=== PATIENT | female | born 1955 | race Caucasian/White ===

== ENCOUNTER 2018-09-28 19:47 | Inpatient (IN) | payer OTHER ==
[2018-09-28] MEDS ORDERED: SODIUM CHLORIDE 1,000 ML IV STA (19:57)
[2018-09-28] MEDS ORDERED: ONDANSETRON 4 MG/2 ML VIAL IVPB ONE (20:00)
--- NOTE | 2018-09-28 20:01 | PDOC ---
Rapid Medical Evaluation Chief Complaint: Pain Time Seen by Provider: 09/28/18 19:56 Medical Evaluation: 09/28/18 19:56 63 year old female diagnosed with diverticulitis currently on cipro and flagyl with worsening abdominal pain NVD. Pe: patient + lower abdominal tenderness A: abdominal pain P labs CTAp blood culture patient to ER for further management of care. 09/28/18 20:03 09/28/18 20:04 Discharge Disposition - Diagnosis Abdominal pain Qualifiers: Abdominal location: lower abdomen, unspecified Qualified Code(s): R10.30 - Lower abdominal pain, unspecified - Referrals - Patient Instructions - Post Discharge Activity
[2018-09-28] MEDS ORDERED: ONDANSETRON 4 MG/2 ML VIAL ONE (20:20)
[2018-09-28 20:31] LABS: BASO % 0.9 % (0-2.0); EOS % 1.2 % (0-4.5); HEMATOCRIT 42.4 % (32.4-45.2); HEMOGLOBIN 14.3 GM/dL (10.7-15.3); LYMPH % 21.7 % (8-40); MCHC 33.8 g/dl (32.0-36.0); MEAN PLT VOLUME 10.3 fl (7.5-11.1); NEUT % 65.2 % (42.8-82.8); PLATELET COUNT 299 K/MM3 (134-434); WHITE BLOOD COUNT 8.5 K/mm3 (4.0-10.0)
[2018-09-28 20:33] LABS: URINE APPEARANCE CLEAR; URINE BILIRUBIN NEGATIVE (<2.0 mg/dL); URINE COLOR DKYELLOW; URINE GLUCOSE (UA) NEGATIVE (NEGATIVE); URINE KETONE 2+ (NEGATIVE); URINE LEUK ESTERASE 1+ (NEGATIVE); URINE NITRITE NEGATIVE (NEGATIVE); URINE PROTEIN 1+ (NEGATIVE)
[2018-09-28 20:44] LABS: EPI CELLS RARE /HPF (FEW); URINE MUCUS FEW
[2018-09-28 21:32] LABS: ALBUMIN 3.8 g/dl (3.4-5.0); ALK PHOS 121 U/L (45-117); ANION GAP 10 MMOL/L (8-16); BILIRUBIN,TOTAL 0.5 mg/dL (0.2-1); BLOOD UREA NITROGEN 9 mg/dL (7-18); CHLORIDE 105 mmol/L (98-107); CO2 25 mmol/L (21-32); CREATININE 0.6 mg/dL (0.55-1.3); GLUCOSE,RANDOM 88 mg/dL (74-106); LIPASE 232 U/L (73-393); POTASSIUM 3.7 mmol/L (3.5-5.1); SGOT/AST 26 U/L (15-37); SGPT/ALT 46 U/L (13-61); SODIUM 140 mmol/L (136-145); TOT PROT 7.4 g/dl (6.4-8.2)
--- NOTE | 2018-09-28 22:41 | PDOC ---
History of Present Illness - General Chief Complaint: Pain Stated Complaint: ABD PAIN, WEAKNESS Time Seen by Provider: 09/28/18 19:56 History Source: Patient Exam Limitations: No Limitations - History of Present Illness Travel History: No Initial Comments: 09/28/18 22:42 Best Contact: PCP: Dr. Morse Pmhx: Arthritis Pshx: TVH Allergies:NKDA FH:0 Social Hx: Cigarettes/ 0 Alcohol/ 0 Drugs/0 LMP:N/A 63-year-old female presents to the ER complaining of 6/10 left lower quadrant abdominal discomfort 15 days with nausea/vomiting/diarrhea (NBNB). Pain is exacerbated on touch and no alleviating factors. Patient endorses fever/Tmax 101.2 off-and-on for approximately 5 days. Patient has been afebrile for the past 4 days. Patient saw her PMD on 2017 and was clinically diagnosed with diverticulitis. Patient was sent home with Cipro floxacillin 500 mg 1 tab by mouth twice a day and Flagyl 500 mg 1 tab by mouth every 8 hours. Patient has been on antibiotics for the past 8 days with minimal relief. Patient states her last bout of diarrhea was 4 days ago. No history of similar symptoms. Past History - Past Medical History Allergies/Adverse Reactions: Allergies Allergy/AdvReac Type Severity Reaction Status Date / Time No Known Allergies Allergy Verified 09/28/18 19:57 COPD: No - Suicide/Smoking/Psychosocial Hx Smoking History: Never smoked Review of Systems - Review of Systems Able to Perform ROS?: Yes Comments:: 09/28/18 22:41 CONSTITUTIONAL: Absent: fever, chills, diaphoresis, generalized weakness, malaise, loss of appetite HEENT: Absent: rhinorrhea, nasal congestion, throat pain, throat swelling, difficulty swallowing, mouth swelling, ear pain, eye pain, visual Changes CARDIOVASCULAR: Absent: chest pain, loss of consciousness, palpitations, irregular heart rate, peripheral edema RESPIRATORY: Absent: cough, shortness of breath, dyspnea with exertion, orthopnea, wheezing, stridor, hemoptysis GASTROINTESTINAL: +LLQ pain x 15d Absent: abdominal distension, nausea, vomiting, diarrhea, constipation, melena, hematochezia GENITOURINARY: Absent: dysuria, frequency, urgency, hesitancy, hematuria, flank pain, genital pain MUSCULOSKELETAL: Absent: myalgia, arthralgia, joint swelling SKIN: Absent: rash, itching, pallor Is the patient limited Citizen Of [place] proficient: No *Physical Exam - Vital Signs Last Vital Signs Temp Pulse Resp BP Pulse Ox 99.4 F 118 H 18 137/71 98 09/28/18 19:54 09/28/18 19:54 09/28/18 19:54 09/28/18 19:54 09/28/18 19:54 - Physical Exam Comments: 09/28/18 22:41 GENERAL: Well developed, well nourished. Awake and alert. No acute distress. HEENT: Normocephalic, atraumatic. PERRLA, EOMI. No conjunctival pallor. Sclera are non- icteric. Moist mucous membranes. Oropharynx is clear. NECK: Supple. Full ROM. No JVD. Carotid pulses 2+ and symmetric, without bruits. No thyromegaly. No lymphadenopathy. CARDIOVASCULAR: Regular rate and rhythm. No murmurs, rubs, or gallops. Distal pulses are 2+ and symmetric. PULMONARY: No evidence of respiratory distress. Lungs clear to auscultation bilaterally. No wheezing, rales or rhonchi. ABDOMINAL: +LLQ pain Soft. Non-distended. No rebound or guarding. No organomegaly. Normoactive bowel sounds. MUSCULOSKELETAL Normal range of motion at all joints. No bony deformities or tenderness. No CVA tenderness. EXTREMITIES: No cyanosis. No clubbing. No edema. No calf tenderness. SKIN: Warm and dry. Normal capillary refill. No rashes. No jaundice. NEUROLOGICAL: Alert, awake, appropriate. Cranial nerves 2-12 intact. No deficits to light touch and temperature in face, upper extremities and lower extremities. No motor deficits in the in face, upper extremities and lower extremities. Normoreflexic in the upper and lower extremities. Normal speech. Toes are down- going bilaterally. Gait is normal without ataxia. PSYCHIATRIC: Cooperative. Good eye contact. Appropriate mood and affect. ED Treatment Course - LABORATORY CBC & Chemistry Diagram: 09/28/18 20:12 09/28/18 20:12 - ADDITIONAL ORDERS Additional order review: Laboratory Results 09/28/18 09/28/18 09/28/18 20:54 20:14 20:12 Sodium 140 Potassium 3.7 Chloride 105 Carbon Dioxide 25 Anion Gap 10 BUN 9 Creatinine 0.6 Creat Clearance w eGFR > 60 Random Glucose 88 Lactic Acid 2.2 H* Calcium 9.0 Total Bilirubin 0.5 AST 26 ALT 46 Alkaline Phosphatase 121 H Total Protein 7.4 Albumin 3.8 Lipase 232 Urine Color Dkyellow Urine Appearance Clear Urine pH 6.0 Ur Specific [place] 1.020 Urine Protein 1+ H Urine Glucose (UA) Negative Urine Ketones 2+ H Urine Blood Negative Urine Nitrite Negative Urine Bilirubin Negative Urine Urobilinogen 2.0 H Ur Leukocyte Esterase 1+ H Urine WBC (Auto) 6 Urine RBC (Auto) 4 Ur Epithelial Cells Rare Urine Mucus Few 09/28/18 20:12 RBC 5.10 MCV 83.0 MCHC 33.8 RDW 13.0 MPV 10.3 Neutrophils % 65.2 Lymphocytes % 21.7 Monocytes % 11.0 H Eosinophils % 1.2 Basophils % 0.9 - RADIOLOGY Radiograph Interpretation: 09/28/18 22:42 CT abd/pelvis with po/iv contrast: - Medications Given in the ED: ED Medications Discontinued Medications Generic Name Dose Route Start Last Admin Trade Name Andreia PRN Reason Stop Dose Admin Sodium Chloride 1,000 mls @ 1,000 mls/hr 09/28/18 19:57 09/28/18 20:29 Normal Saline - IV 09/28/18 20:56 1,000 mls/hr ASDIR STA Administration Ondansetron HCl 4 mg 09/28/18 20:00 09/28/18 20:29 Zofran Injection IVPB 09/28/18 20:01 4 mg ONCE ONE Administration Progress Note - Progress Note Progress Note: 2321hrs: Spoke to Dr. Newman/surgery options advisor, req IR consult order, admit to hospitalist Bradley/siobhan Will see in the Am 2337hr: Microblogged hospitalist for admission *DC/Admit/Observation/Transfer Diagnosis at time of Disposition: Abdominal pain Qualifiers: Abdominal location: lower abdomen, unspecified Qualified Code(s): R10.30 - Lower abdominal pain, unspecified - Discharge Dispostion Condition at time of disposition: Guarded Decision to Admit order: Yes - Referrals - Patient Instructions - Post Discharge Activity
--- NOTE | 2018-09-29 00:29 | PN ---
<Riccardo Degroot - Last Filed: 09/29/18 01:19> Teaching Attending Note ATTENDING PHYSICIAN STATEMENT I saw and evaluated the patient. I reviewed the resident's note and discussed the case with the resident. I agree with the resident's findings and plan as documented. SUBJECTIVE: OBJECTIVE: ASSESSMENT AND PLAN: <Jared Rothman - Last Filed: 09/29/18 02:38> Teaching Attending Note Name of Resident: Andrade Coello ATTENDING PHYSICIAN STATEMENT I saw and evaluated the patient. I reviewed the resident's note and discussed the case with the resident. I agree with the resident's findings and plan as documented. SUBJECTIVE: Patient is a 63 year old woman who presents to the ER complaining of 6/10 left lower quadrant abdominal discomfort for 15 days with nausea/vomiting/diarrhea. Pain is exacerbated on touch and no alleviating factors. Patient has fever ( Tmax 101.2) off-and-on for approximately 5 days. Patient has been afebrile for the past 4 days. Patient saw her PMD on 09/22/2018 and was clinically diagnosed with diverticulitis. Patient was sent home with Cipro 500 mg bid and Flagyl 500 mg PO q 8hrs. Patient has been on antibiotics for the past 8 days with minimal relief. Patient states her last bout of diarrhea was 4 days ago. OBJECTIVE: Alert Vital Signs Period Temp Pulse Resp BP Sys/[place] Pulse Ox Last 24 Hr 99.4 F 118 18 137/71 98 HEENT: No Jaundice, eye redness or discharge, PERRLA, EOMI. Normocephalic, atraumatic. External ears are normal and hearing is grossly intact. No nasal discharge. Neck: Supple, nontender. No palpable adenopathy or thyromegaly. No JVD Chest: Good effort. Clear to auscultation and percussion. Heart: Regular. No S3, rub or murmur Abdomen: Not distended, soft, LLQ tenderness and no HSM. No rebound or guarding. Normoactive bowel sounds. Ext: Peripheral pulses intact. No leg edema. Skin: Warm and dry. No petechiae, rash or ecchymosis. Neuro: Alert. Oriented x3. CN 2-12 grossly intact. Sensation grossly intact in all four extremities and DTR are symmetric. Current Medications Generic Name Dose Route Start Last Admin Trade Name Freq PRN Reason Stop Dose Admin Metronidazole 500 mg in 100 mls @ 100 mls/hr 09/28/18 23:33 Flagyl 500mg Premixed Ivpb - IVPB 09/29/18 00:32 ONCE ONE Levofloxacin 500 mg in 100 mls @ 100 mls/hr 09/28/18 23:33 Levaquin 500 Mg Premixed Ivpb - IVPB 09/29/18 00:32 ONCE ONE Protocol Abnormal Lab Results 09/28/18 09/28/18 09/28/18 20:12 20:12 20:14 Monocytes % 11.0 H Lactic Acid Alkaline Phosphatase 121 H Urine Protein 1+ H Urine Ketones 2+ H Urine Urobilinogen 2.0 H Ur Leukocyte Esterase 1+ H 09/28/18 20:54 Monocytes % Lactic Acid 2.2 H* Alkaline Phosphatase Urine Protein Urine Ketones Urine Urobilinogen Ur Leukocyte Esterase ASSESSMENT AND PLAN: 1. Sigmoid Diverticulitis with intramural abscess - Will treat with IV Zosyn, continue IV NS, trend lactic acid, keep her NPO and consult Surgery, IR and ID. 2. DVT prophylaxis - Lovenox 40 mg SQ q 24 hours. 3. Advance directives - Full code
[2018-09-29] MEDS ORDERED: ONDANSETRON 4 MG/2 ML VIAL IVPUSH PRN (02:10)
[2018-09-29] MEDS ORDERED: DEXTROSE 5%-0.45% SALINE 1,000 ML IV SCH (02:15)
--- NOTE | 2018-09-29 02:21 | HP ---
CHIEF COMPLAINT: Nausea, diarrhea, LLQ pain PCP: Dr. Morse HISTORY OF PRESENT ILLNESS: 63 yo female with no significant PMH admitted following 2 weeks of LLQ abdominal pain, fevers (Tmax 102 at home, now resolved), nausea, vomiting, diarrhea. She states that last saturday 09/22 she saw her PCP who diagnosed her with Diverticulitis and started her on PO Cipro/Flagyl. She states that her fever resolved about 3 days ago and that she is no longer vomiting, however her nausea, pain, and diarrhea persist. She called her PCP for another appointment and could not get in today so her daughter brought her to the ED. She currently endorses chills, LLQ pain, and nausea. She denies any headache, dizziness, chest pain, SOB, hematochezia or hematemesis. ER course was notable for: (1) CT Abd/Pelvis with diverticulitis and colonic wall abscess (2) Surgery consulted (3) Flagyl/Levaquin Recent Travel: none PAST MEDICAL HISTORY: Arthritis PAST SURGICAL HISTORY: Vaginal Hysterectomy Social History: Smoking: denies Alcohol: denies Drugs: denies Family History: Allergies No Known Allergies Allergy (Verified 09/29/18 01:53) HOME MEDICATIONS: REVIEW OF SYSTEMS CONSTITUTIONAL: fever, chills Absent: , diaphoresis, generalized weakness, malaise, loss of appetite, weight change HEENT: Absent: rhinorrhea, nasal congestion, throat pain, throat swelling, difficulty swallowing, mouth swelling, ear pain, eye pain, visual changes CARDIOVASCULAR: Absent: chest pain, syncope, palpitations, irregular heart rate, lightheadedness , peripheral edema RESPIRATORY: Absent: cough, shortness of breath, dyspnea with exertion, orthopnea, wheezing, stridor, hemoptysis GASTROINTESTINAL:abdominal pain, nausea, vomiting, diarrhea, Absent: , abdominal distension, constipation, melena, hematochezia GENITOURINARY: Absent: dysuria, frequency, urgency, hesitancy, hematuria, flank pain, genital pain MUSCULOSKELETAL: Absent: myalgia, arthralgia, joint swelling, back pain, neck pain SKIN: Absent: rash, itching, pallor HEMATOLOGIC/IMMUNOLOGIC: Absent: easy bleeding, easy bruising, lymphadenopathy, frequent infections ENDOCRINE: Absent: unexplained weight gain, unexplained weight loss, heat intolerance, cold intolerance NEUROLOGIC: Absent: headache, focal weakness or paresthesias, dizziness, unsteady gait, seizure, mental status changes, bladder or bowel incontinence PSYCHIATRIC: Absent: anxiety, depression, suicidal or homicidal ideation, hallucinations. PHYSICAL EXAMINATION Vital Signs - 24 hr 09/28/18 09/29/18 19:54 01:25 Temperature 99.4 F 99.7 F H Pulse Rate 118 H Pulse Rate [ 85 Right Radial] Respiratory 18 16 Rate Blood Pressure 137/71 Blood Pressure 131/81 [Right Arm] O2 Sat by Pulse 98 95 Oximetry (%) GENERAL: A&O, no acute distress HEAD: Normocephalic, atraumatic. EYES: PERRL, no scleral icterus EARS, NOSE, THROAT: oropharynx clear without exudates. Moist mucous membranes. NECK: supple without lymphadenopathy LUNGS: CTA b/l, no crackles or wheezes HEART: Regular rate and rhythm, normal S1 and S2 without murmur ABDOMEN: Soft, tender to palpation in LLQ, normoactive to hyperactive bowel sounds EXTREMITIES: 2+ pulses, warm, well-perfused. No peripheral edema. NEUROLOGICAL: Cranial nerves II-XII grossly intact. Normal speech. Laboratory Results - last 24 hr 09/28/18 09/28/18 09/28/18 20:12 20:12 20:14 WBC 8.5 RBC 5.10 Hgb 14.3 Hct 42.4 MCV 83.0 MCH 28.0 MCHC 33.8 RDW 13.0 Plt Count 299 MPV 10.3 Absolute Neuts (auto) 5.6 Neutrophils % 65.2 Lymphocytes % 21.7 Monocytes % 11.0 H Eosinophils % 1.2 Basophils % 0.9 Nucleated RBC % 0 Sodium 140 Potassium 3.7 Chloride 105 Carbon Dioxide 25 Anion Gap 10 BUN 9 Creatinine 0.6 Creat Clearance w eGFR > 60 Random Glucose 88 Lactic Acid Calcium 9.0 Total Bilirubin 0.5 AST 26 ALT 46 Alkaline Phosphatase 121 H Total Protein 7.4 Albumin 3.8 Lipase 232 Urine Color Dkyellow Urine Appearance Clear Urine pH 6.0 Ur Specific [place] 1.020 Urine Protein 1+ H Urine Glucose (UA) Negative Urine Ketones 2+ H Urine Blood Negative Urine Nitrite Negative Urine Bilirubin Negative Urine Urobilinogen 2.0 H Ur Leukocyte Esterase 1+ H Urine WBC (Auto) 6 Urine RBC (Auto) 4 Ur Epithelial Cells Rare Urine Mucus Few 09/28/18 20:54 WBC RBC Hgb Hct MCV MCH MCHC RDW Plt Count MPV Absolute Neuts (auto) Neutrophils % Lymphocytes % Monocytes % Eosinophils % Basophils % Nucleated RBC % Sodium Potassium Chloride Carbon Dioxide Anion Gap BUN Creatinine Creat Clearance w eGFR Random Glucose Lactic Acid 2.2 H* Calcium Total Bilirubin AST ALT Alkaline Phosphatase Total Protein Albumin Lipase Urine Color Urine Appearance Urine pH Ur Specific [place] Urine Protein Urine Glucose (UA) Urine Ketones Urine Blood Urine Nitrite Urine Bilirubin Urine Urobilinogen Ur Leukocyte Esterase Urine WBC (Auto) Urine RBC (Auto) Ur Epithelial Cells Urine Mucus ASSESSMENT/PLAN: 63 yo female with no significant PMH admitted following 2 weeks of LLQ abdominal pain, fevers (Tmax 102 at home, now resolved), nausea, vomiting, diarrhea. Diverticulitis with colonic wall abscess -CT Abd/Pelvis noted: Acute sigmoid diverticulitis with intramural abscess in colonic wall -Surgery consulted, case discussed with ED provider -Levaquin Flagyl in ED -Zofran 4 mg IV Q6 PRN -Zosyn 3.375 gm IV Q8 -ID Consulted for further abx recommendations -Currently Afebrile, WBC 8.5, 11 monocytes -Consider IR guided drainage -Lactic acid 2.2, fluids and trend -Blood c/s pending -NPO -Incentive spirometry DVT Prophylaxis -Lovenox 40 mg SQ Daily FEN -Fluids: D5 1/2 NS @ 25 cc/hr -Electrolytes: No electrolyte abnormalities, BMP in AM -Nutrition: NPO Disposition Med/Surg Visit type - Emergency Visit Emergency Visit: Yes ED Registration Date: 09/28/18 Care time: The patient presented to the Emergency Department on the above date and was hospitalized for further evaluation of their emergent condition. - New Patient This patient is new to me today: Yes Date on this admission: 09/29/18 - Critical Care Critical Care patient: No
[2018-09-29] MEDS ORDERED: PIPERACILLIN/TAZOB 3.375 GM 3.375 GM/50 ML BAG IVPB ONE (02:41)
[2018-09-29] MEDS: PIPERACILLIN/TAZOB 3.375 GM 3.375 GM in DEXTROSE 5%-WATER - 50 ML IVPB SCH ×4 (02:50→17:27)
--- NOTE | 2018-09-29 03:40 | CONSULT ---
Consult Consult Specialty:: General Surgery Reason for Consultation:: betina 1 diverticulitis - History of Present Illness Chief Complaint: abdominal pain History of Present Illness: 63yo female with PMH constipation, diverticulitis admitted following 2 weeks of LLQ abdominal pain, fevers (Tmax 102 at home, now resolved), nausea, vomiting, diarrhea. She states that last saturday 09/22 she saw her PCP who diagnosed her with Diverticulitis and started her on PO Cipro/Flagyl. She states that her fever resolved about 3 days ago and that she is no longer vomiting, however her nausea, pain, and diarrhea persist. She called her PCP for another appointment and could not get in today so her daughter brought her to the ED. She currently endorses chills, LLQ pain, and nausea. She denies any headache, dizziness, chest pain, SOB, hematochezia or hematemesis. on exam she reported that her abdominal pain was resolved now. we were asked to assess. - History Source History Provided By: Patient, Medical Record Limitations to Obtaining History: No Limitations - Past Medical History Gastrointestinal: Yes: Constipation, Diverticulitis - Smoking History Smoking history: Never smoked Home Medications - Allergies Allergies/Adverse Reactions: Allergies Allergy/AdvReac Type Severity Reaction Status Date / Time No Known Allergies Allergy Verified 09/29/18 01:53 Review of Systems - Review of Systems Constitutional: reports: Fever. denies: Chills Eyes: denies: Blind Spots, Recent Change in Vision HENT: denies: Difficult Swallowing, Throat Pain Neck: denies: Lumps, Tenderness Cardiovascular: denies: Chest Pain, Palpitations Respiratory: denies: Cough, SOB Gastrointestinal: reports: Abdominal Pain, Constipation. denies: Diarrhea, Vomiting Genitourinary: denies: Discharge, Dysuria Breasts: reports: No Symptoms Reported. denies: Pain Musculoskeletal: denies: Muscle Cramps, Muscle Weakness Integumentary: denies: Bruising, Erythema, Rash Neurological: denies: Seizure, Syncope Endocrine: denies: Unexplained Weight Gain, Unexplained Weight Loss Hematology/Lymphatic: denies: Easily Bruised, Excessive Bleeding Psychiatric: denies: Anxiety, Depression Physical Exam Vital Signs: Vital Signs Temperature 99.7 F H 09/29/18 01:25 Pulse Rate 85 09/29/18 01:25 Respiratory Rate 16 11/20/18 01:25 Blood Pressure 131/81 11/20/18 01:25 O2 Sat by Pulse Oximetry (%) 95 09/29/18 01:25 Constitutional: Yes: Well Nourished, No Distress, Calm Eyes: Yes: Conjunctiva Clear, EOM Intact HENT: Yes: Atraumatic, Normocephalic Neck: Yes: Supple, Trachea Midline Cardiovascular: Yes: Regular Rate and Rhythm, S1, S2 Respiratory: Yes: Regular, CTA Bilaterally Gastrointestinal: Yes: Normal Bowel Sounds, Soft, Tenderness (LLQ), Tenderness, Rebound. No: Rectal Bleeding, Tenderness, Epigastrium ...Rectal Exam: Yes: Sphincter Tone Normal, Other (uncomfitable). No: Mass Renal/: No: CVA Tenderness - Left, CVA Tenderness - Right Extremities: No: Cold, Cool Edema: No Peripheral Pulses WNL: Yes Integumentary: No: Erythema, Jaundice, Rash Neurological: Yes: Alert, Oriented Psychiatric: Yes: Alert, Oriented Labs: CBC, BMP 09/28/18 20:12 09/28/18 20:12 Imaging - Results Cat Scan: Report Reviewed, Image Reviewed (pericolinic abscess thicen rectosigmoid) Problem List - Problems (1) Diverticulitis of large intestine with abscess Assessment/Plan: 63yo female with constipation and an acute diverticulitis (hinchey class 1), associated high fevers NPO and IVF hydration until pain free - patient had a tray of clears already IV antibiotics (levaquin flagyl, possible zosyn?) Assessment by IR for drainage of abscess will need PO antibiotic regimen GI for f/u colonioscopy in 6-8weeks f/u in surgery clinic in 3 months for elective sigmoid colectoy if desired. will follow periperally for serial exams Thank you for the opportunity to participate in the care of this patient. Code(s): K57.20 - DVTRCLI OF LG INT W PERFORATION AND ABSCESS W/O BLEEDING Qualifiers: Diverticulitis bleeding: without bleeding Qualified Code(s): K57.20 - Diverticulitis of large intestine with perforation and abscess without bleeding (2) Diverticulitis large intestine Code(s): K57.32 - DVTRCLI OF LG INT W/O PERFORATION OR ABSCESS W/O BLEEDING Qualifiers: Diverticulitis bleeding: without bleeding Diverticulitis complication: with abscess Qualified Code(s): K57.20 - Diverticulitis of large intestine with perforation and abscess without bleeding (3) Diverticulitis of rectosigmoid Code(s): K57.32 - DVTRCLI OF LG INT W/O PERFORATION OR ABSCESS W/O BLEEDING (4) Abdominal pain Code(s): R10.9 - UNSPECIFIED ABDOMINAL PAIN Qualifiers: Abdominal location: lower abdomen, unspecified Qualified Code(s): R10.30 - Lower abdominal pain, unspecified
[2018-09-29 04:44] VITALS: BMI 28.7
[2018-09-29 07:02] LABS: BASO % 0.6 % (0-2.0); EOS % 1.9 % (0-4.5); HEMATOCRIT 37.6 % (32.4-45.2); HEMOGLOBIN 11.8 GM/dL (10.7-15.3); MCH 26.5 pg (25.7-33.7); MCHC 31.4 g/dl (32.0-36.0); MEAN CELL VOLUME 84.4 fl (80-96); MEAN PLT VOLUME 10.1 fl (7.5-11.1); MONO % 16.7 % (3.8-10.2); NEUT % 53.8 % (42.8-82.8); PLATELET COUNT 226 K/MM3 (134-434); RBC 4.46 M/mm3 (3.60-5.2); RDW 13.4 % (11.6-15.6); WHITE BLOOD COUNT 5.6 K/mm3 (4.0-10.0)
[2018-09-29 07:25] LABS: ALBUMIN 2.8 g/dl (3.4-5.0); ALK PHOS 94 U/L (45-117); ANION GAP 11 MMOL/L (8-16); BILIRUBIN,TOTAL 0.5 mg/dL (0.2-1); BLOOD UREA NITROGEN 5 mg/dL (7-18); CALCIUM 7.7 mg/dL (8.5-10.1); CHLORIDE 106 mmol/L (98-107); CO2 24 mmol/L (21-32); CREATININE 0.5 mg/dL (0.55-1.3); GLUCOSE,RANDOM 107 mg/dL (74-106); MAGNESIUM 2.1 mg/dL (1.8-2.4); PHOSPHOROUS 2.6 mg/dL (2.5-4.9); POTASSIUM 3.4 mmol/L (3.5-5.1); SGOT/AST 22 U/L (15-37); SGPT/ALT 36 U/L (13-61); SODIUM 141 mmol/L (136-145); TOT PROT 5.7 g/dl (6.4-8.2)
[2018-09-29 07:33] LABS: INR 1.34 (0.83-1.09); PROTHROMBIN TIME (PATIENT) 15.9 SEC (9.7-13.0)
[2018-09-29] MEDS ORDERED: POTASSIUM CHLORIDE TABS 20 MEQ TABLET.ER (FP) PO ONE (07:40)
[2018-09-29] MEDS ORDERED: PIPERACILLIN/TAZOBACTAM 3.375 GM VIAL IVPB ONE ×3 (09:13→17:17)
[2018-09-29] MEDS ORDERED: DEXTROSE 5%-WATER - 50 ML IVPB ONE ×3 (09:14→17:17)
[2018-09-29] MEDS ORDERED: PT OWN MED DRAWER 7, Y5N ONE ×2 (09:17→12:29)
[2018-09-29] MEDS ORDERED: ENOXAPARIN NA (PORCINE) 40 MG/0.4 ML DISP.SYRIN SQ SCH (10:00)
--- NOTE | 2018-09-29 10:43 | EKG ---
Test Reason : Blood Pressure : / mmHG Vent. Rate : 092 BPM Atrial Rate : 092 BPM P-R Int : 134 ms QRS Dur : 080 ms QT Int : 344 ms P-R-T Axes : 050 042 001 degrees QTc Int : 425 ms NORMAL SINUS RHYTHM ABNORMAL ECG NO PREVIOUS ECGS AVAILABLE Confirmed by Duane Arzola MD ([id number]) on 09/29/2018 10:43:43 AM Referred By: Confirmed By:Duane Arzola MD
[2018-09-29] MEDS ORDERED: PANTOPRAZOLE SODIUM 40 MG VIAL IVPUSH ONE (10:59)
--- NOTE | 2018-09-29 11:40 | PN ---
Progress Note (short form) - Note Progress Note: ID Consult dictated Acute complicated sigmoid diverticulitis Diverticular abscess Await c/s Surgical evaluation Empiric zosyn
--- NOTE | 2018-09-29 12:03 | CONS ---
DATE OF CONSULTATION: DATE OF DICTATION: 09/29/2018 The patient is a 63-year-old healthy female who is evaluated for acute complicated diverticulitis. The patient was admitted to the hospital on September 28, 2018, with complaints of left lower abdominal pain. According to the notes, she had developed pain approximately 2 weeks prior to admission. It was located to the left lower quadrant. It was associated with nausea, vomiting and diarrhea. She had subjective fever. She presented to the primary care physician and was prescribed an oral quinolone and Flagyl. Despite taking antibiotics for a week, she had progressively worsening left lower quadrant pain to the point where her daughter took her to the emergency room. In emergency room, a CAT scan was performed and showed evidence of sigmoid diverticulitis with an intramural abscess. Cultures were obtained. She was empirically treated with Zosyn. At the present time, she complains of left lower quadrant abdominal pain. She has had nausea, vomiting. She has had loose bowel movement. She denies any rectal bleeding. She has had low-grade fever since admission but a normal white blood cell count. She denies prior history of GI problems. She is otherwise healthy. PAST MEDICAL HISTORY: Negative. No known allergies. Medications include Zofran, Zosyn. SOCIAL HISTORY: She lives at home in the community. She is a nonsmoker, nondrinker. SYSTEMS REVIEW: Neurologic: No loss of consciousness, seizure activity, focal weakness. Cardiac: Negative chest pain or palpitations. Respiratory: Negative cough or sputum production. Gastrointestinal: As per HPI. Genitourinary: Negative for urinary tract infection. LABORATORY DATA: White count 5.6, hematocrit 37.6, platelet count 226, BUN 5, creatinine 0.5, lactic acid 2.2. Urinalysis: 6 white cells. Blood cultures are pending. CAT scan shows thickened sigmoid colon with intramural abscess. There is also a 2 cm left ovarian cyst. PHYSICAL EXAMINATION: General: She is awake and alert, supine in bed. She is in no acute distress. Vital Signs: Temperature 98.8. T-max 99.7. Blood pressure 115/72. Pulse 82, regular. Respirations 20 per minute. Eyes: Sclerae anicteric. Heart Sounds: S1, S2. No murmur. Lungs: Clear. Abdomen: Soft. There is left lower quadrant tenderness to palpation. Extremities: Negative for edema. IMPRESSION: 1. Acute complicated sigmoid diverticulitis. 2. Intramural diverticular abscess. 3. Lactic acidosis. Await cultures. Surgical evaluation. IR evaluation for possible percutaneous drainage of diverticular abscess. Empiric antibiotic coverage for enteric pathogens with Zosyn 3.375 g IV piggyback every 8 hours, analgesics. Will follow. Thank you for the kind referral. JAZMÍN ALARCON M.D. [id number]
--- NOTE | 2018-09-29 12:57 | PN ---
Teaching Attending Note Name of Resident: Olga Pantoja ATTENDING PHYSICIAN STATEMENT I saw and evaluated the patient. I reviewed the resident's note and discussed the case with the resident. I agree with the resident's findings and plan as documented. SUBJECTIVE: No fever or chills . No abd pain. No N/V today . No diarrhea. OBJECTIVE: NAD , awake, alert, cooperative Cv; RRR Lungs: CTAB Abd: soft, TTP in LLQ and suprapubic area. nl BS, ND. Ext: no edema or erythema ASSESSMENT AND PLAN: 63 y/o previously healthy lady who presented with abd pain and N/V after being treated for acute diverticulitis x 8 days with cipro/flagyl 1- Acute sigmoid diverticulitis with abscess formation: N/V resolved. has no Abd pain or diarrhea - Zosyn per ID. already failed fluoroquinolones - cont IVF, switch to D51/2 NS with Kcl - NPO, clears tomorrow - case was d/w Dr. Loomis by resident. abscess is not in a location that could be reached. - will treat conservatively and repeat CT as out pt to assess resolution . - as out pt will need colo and surgical f/u DVT Px : add Lovenox
--- NOTE | 2018-09-29 14:10 | PN ---
Physical Exam: SUBJECTIVE: Patient is a 63 y/o female with no past medical history who is here for diverticulitis with colonic wall abscess. Patient reports the diarrhea has subsided and she no longer feels feverish. She has no acute complaints and no events overnight. OBJECTIVE: Vital Signs Temperature 98.8 F 09/29/18 08:00 Pulse Rate 82 09/29/18 08:00 Respiratory Rate 20 09/29/18 09:00 Blood Pressure 115/72 09/29/18 08:00 O2 Sat by Pulse Oximetry (%) 98 09/29/18 09:00 GENERAL: The patient is awake, alert, and fully oriented, in no acute distress. HEAD: Normal with no signs of trauma. EYES: PERRL, extraocular movements intact, ENT: moist mucous membranes. LUNGS: Breath sounds equal, clear to auscultation bilaterally, no wheezes, no crackles HEART: Regular rate and rhythm, S1, S2 without murmur, rub or gallop. ABDOMEN: Soft, nontender, nondistended, normoactive bowel sounds, no guarding, no rebound EXTREMITIES: 2+ pulses, warm, well-perfused, no edema. PSYCH: Normal mood, normal affect. SKIN: Warm, dry, normal turgor, no rashes or lesions noted CBC, BMP 09/29/18 06:30 09/29/18 06:30 Active Medications Enoxaparin Sodium (Lovenox -) 40 mg SQ DAILY IDA Potassium Chloride/Dextrose/Sod Cl (D5-1/2ns+10 Meq Kcl -) 10 meq in 1,000 mls @ 100 mls/hr IV ASDIR IDA Piperacillin Sod/Tazobactam (Sod 3.375 gm/ Dextrose) 50 mls @ 100 mls/hr IVPB Q8H-IV IDA; Protocol Last Admin: 09/29/18 12:13 Dose: 100 mls/hr Ondansetron HCl (Zofran Injection) 4 mg IVPUSH Q6H PRN PRN Reason: NAUSEA ASSESSMENT/PLAN: Patient is a 63 y/o female with no past medical history who is here for diverticulitis with colonic wall abscess. #diverticulitis with colonic wall abscess - CT abd pelvis: acute sigmoid diverticulitis with intramural abscess in colonic wall - continue patient on Zosyn 3.3.75 gm IV q8h, day 2 - continue IV abx per Bharath, monitor clinically to determine when change to po abx - lactic acid 2.2> 2.0 - evaluated by Surgery and IR, abscess not drainable at this time - per surgery, Dr. Newman: continue NPO and IV fluids until clinically improved, D5 1/2 NS @ 100 - patient to follow up with colonoscopy in 3-6 weeks, can f/u with surgery clinic - CRP: pending - afebrile, tylenol 650 mg q6h prn pain or fever #hypokalemia - D5 1/2 NS with 10 ml K - 40 meq po Kdur #DVT ppx - Lovenox 40 mg Dispo: continue to monitor clinically Visit type - Emergency Visit Emergency Visit: No - New Patient This patient is new to me today: Yes Date on this admission: 09/29/18 - Critical Care Critical Care patient: No
[2018-09-29] MEDS ORDERED: ACETAMINOPHEN 325 MG TABLET (FP) PO PRN (14:34)
[2018-09-29] MEDS: D5-1/2NS+10 MEQ KCL - 10 MEQ/1,000 ML INFUS.BAG IV SCH (14:55)
[2018-09-29] MEDS ORDERED: PIPERACILLIN/TAZOB 3.375 GM 3.375 GM in DEXTROSE 5%-WATER - 50 ML IVPB SCH (18:00)
[2018-09-30] MEDS ORDERED: PIPERACILLIN/TAZOBACTAM 3.375 GM VIAL IVPB ONE ×3 (02:06→17:41)
[2018-09-30] MEDS ORDERED: DEXTROSE 5%-WATER - 50 ML IVPB ONE ×3 (02:06→17:41)
[2018-09-30] MEDS: D5-1/2NS+10 MEQ KCL - 10 MEQ/1,000 ML INFUS.BAG IV SCH (02:08)
[2018-09-30] MEDS: PIPERACILLIN/TAZOB 3.375 GM 3.375 GM in DEXTROSE 5%-WATER - 50 ML IVPB SCH ×3 (02:08→17:46)
[2018-09-30 06:57] LABS: HEMATOCRIT 41.3 % (32.4-45.2); HEMOGLOBIN 13.2 GM/dL (10.7-15.3); MCH 26.9 pg (25.7-33.7); MEAN CELL VOLUME 84.2 fl (80-96); PLATELET COUNT 274 K/MM3 (134-434); RBC 4.91 M/mm3 (3.60-5.2); RDW 13.6 % (11.6-15.6); WHITE BLOOD COUNT 5.6 K/mm3 (4.0-10.0)
[2018-09-30 08:07] LABS: ALBUMIN 3.4 g/dl (3.4-5.0); ALK PHOS 105 U/L (45-117); ANION GAP 10 MMOL/L (8-16); BILIRUBIN,TOTAL 0.6 mg/dL (0.2-1); BLOOD UREA NITROGEN 3 mg/dL (7-18); CALCIUM 8.6 mg/dL (8.5-10.1); CHLORIDE 106 mmol/L (98-107); CO2 26 mmol/L (21-32); CREATININE 0.7 mg/dL (0.55-1.3); GLUCOSE,RANDOM 110 mg/dL (74-106); POTASSIUM 4.2 mmol/L (3.5-5.1); SGOT/AST 28 U/L (15-37); SGPT/ALT 39 U/L (13-61); SODIUM 142 mmol/L (136-145); TOT PROT 6.9 g/dl (6.4-8.2)
--- NOTE | 2018-09-30 08:29 | PN ---
Teaching Attending Note Name of Resident: Olga Pantoja ATTENDING PHYSICIAN STATEMENT I saw and evaluated the patient. I reviewed the resident's note and discussed the case with the resident. I agree with the resident's findings and plan as documented. SUBJECTIVE: Patient is feeling better on full liquid diet now. OBJECTIVE: Vital Signs Temperature 99.2 F 09/30/18 06:00 Pulse Rate 78 09/30/18 06:00 Respiratory Rate 18 09/30/18 06:00 Blood Pressure 110/61 09/30/18 06:00 O2 Sat by Pulse Oximetry (%) 98 09/29/18 21:00 GENERAL: The patient is awake, alert, and fully oriented, in no acute distress. HEAD: Normal with no signs of trauma. EYES: PERRL, extraocular movements intact, ENT: moist mucous membranes. LUNGS: Breath sounds equal, clear to auscultation bilaterally, no wheezes, no crackles HEART: Regular rate and rhythm, S1, S2 without murmur, rub or gallop. ABDOMEN: Soft, NT,ND, normoactive bowel sounds, no guarding, no rebound EXTREMITIES: 2+ pulses, warm, well-perfused, no edema. PSYCH: Normal mood, normal affect. SKIN: Warm, dry, normal turgor, no rashes or lesions noted CBCD WBC 5.6 K/mm3 (4.0-10.0) 09/29/18 06:30 RBC 4.46 M/mm3 (3.60-5.2) 09/29/18 06:30 Hgb 11.8 GM/dL (10.7-15.3) 09/29/18 06:30 Hct 37.6 % (32.4-45.2) 09/29/18 06:30 MCV 84.4 fl (80-96) 09/29/18 06:30 MCHC 31.4 g/dl (32.0-36.0) L 09/29/18 06:30 RDW 13.4 % (11.6-15.6) 09/29/18 06:30 Plt Count 226 K/MM3 (134-434) D 09/29/18 06:30 MPV 10.1 fl (7.5-11.1) 09/29/18 06:30 CMP Sodium 142 mmol/L (136-145) 09/30/18 06:15 Potassium 4.2 mmol/L (3.5-5.1) 09/30/18 06:15 Chloride 106 mmol/L (98-107) 09/30/18 06:15 Carbon Dioxide 26 mmol/L (21-32) 09/30/18 06:15 Anion Gap 10 MMOL/L (8-16) 09/30/18 06:15 BUN 3 mg/dL (7-18) L 09/30/18 06:15 Creatinine 0.7 mg/dL (0.55-1.3) 09/30/18 06:15 Creat Clearance w eGFR > 60 (>60) 09/30/18 06:15 Random Glucose 110 mg/dL (74-106) H 09/30/18 06:15 Calcium 8.6 mg/dL (8.5-10.1) 09/30/18 06:15 Total Bilirubin 0.6 mg/dL (0.2-1) 09/30/18 06:15 AST 28 U/L (15-37) 09/30/18 06:15 ALT 39 U/L (13-61) 09/30/18 06:15 Alkaline Phosphatase 105 U/L (45-117) 09/30/18 06:15 Total Protein 6.9 g/dl (6.4-8.2) 09/30/18 06:15 Albumin 3.4 g/dl (3.4-5.0) 09/30/18 06:15 Current Medications Generic Name Dose Route Start Last Admin Trade Name Freq PRN Reason Stop Dose Admin Acetaminophen 650 mg 09/29/18 14:34 Tylenol - PO Q6H PRN PAIN OR FEVER Enoxaparin Sodium 40 mg 09/30/18 10:00 Lovenox - SQ DAILY IDA Potassium Chloride/Dextrose/Sod Cl 10 meq in 1,000 mls @ 100 mls/hr 09/29/18 11:00 09/30/18 02:08 D5-1/2ns+10 Meq Kcl - IV 100 mls/hr ASDIR IDA Administration Piperacillin Sod/Tazobactam 50 mls @ 100 mls/hr 09/29/18 11:30 09/30/18 02:08 Sod 3.375 gm/ Dextrose IVPB 100 mls/hr Q8H-IV IDA Administration Protocol Ondansetron HCl 4 mg 09/29/18 02:10 Zofran Injection IVPUSH Q6H PRN NAUSEA ASSESSMENT AND PLAN: Patient is a 63 y/o female presented with abdominal pain and N/V after being treated with acute diverticulitis x 8 days with cipro/flagyl # Acute sigmoid diverticulitis with abscess formation: on IV Zosyn per ID. since failed fluoroquinolones as an outpatient. on Clear liquid now, cont IVF, switch to D51/2 NS with Kcl , as per notes, patient is not a candidate for IR procedure an abscess drainage since is not in a location that could be reached. treatment conservatively and will repeat CT as out pt to assess resolution . - as out pt will need colonoscopy and surgical f/u once stable. DVT Px : add Lovenox
--- NOTE | 2018-09-30 08:47 | PN ---
Physical Exam: SUBJECTIVE: Patient is a 63 y/o female with no past medical history who is here for diverticulitis with colonic wall abscess. Patient reports the diarrhea has subsided and she no longer feels feverish. She has no acute complaints and no events overnight. Patient reports she has no pain today. OBJECTIVE: Vital Signs Temperature 99.2 F 09/30/18 06:00 Pulse Rate 78 09/30/18 06:00 Respiratory Rate 18 09/30/18 06:00 Blood Pressure 110/61 09/30/18 06:00 O2 Sat by Pulse Oximetry (%) 98 09/29/18 21:00 GENERAL: The patient is awake, alert, and fully oriented, in no acute distress. HEAD: Normal with no signs of trauma. EYES: PERRL, extraocular movements intact, ENT: moist mucous membranes. LUNGS: Breath sounds equal, clear to auscultation bilaterally, no wheezes, no crackles HEART: Regular rate and rhythm, S1, S2 without murmur, rub or gallop. ABDOMEN: Soft, nontender, nondistended, normoactive bowel sounds, no guarding, no rebound EXTREMITIES: 2+ pulses, warm, well-perfused, no edema. PSYCH: Normal mood, normal affect. SKIN: Warm, dry, normal turgor, no rashes or lesions noted CBC, BMP 09/30/18 06:15 09/30/18 06:15 Active Medications Acetaminophen (Tylenol -) 650 mg PO Q6H PRN PRN Reason: PAIN OR FEVER Enoxaparin Sodium (Lovenox -) 40 mg SQ DAILY IDA Potassium Chloride/Dextrose/Sod Cl (D5-1/2ns+10 Meq Kcl -) 10 meq in 1,000 mls @ 100 mls/hr IV ASDIR IDA Last Admin: 09/30/18 02:08 Dose: 100 mls/hr Piperacillin Sod/Tazobactam (Sod 3.375 gm/ Dextrose) 50 mls @ 100 mls/hr IVPB Q8H-IV IDA; Protocol Last Admin: 09/30/18 02:08 Dose: 100 mls/hr Ondansetron HCl (Zofran Injection) 4 mg IVPUSH Q6H PRN PRN Reason: NAUSEA ASSESSMENT/PLAN: Patient is a 63 y/o female with no past medical history who is here for diverticulitis with colonic wall abscess. #diverticulitis with colonic wall abscess - CT abd pelvis: acute sigmoid diverticulitis with intramural abscess in colonic wall - continue patient on Zosyn 3.3.75 gm IV q8h, day 3 - continue IV abx per Bharath, monitor clinically to determine when change to po abx - lactic acid 2.2> 2.0 - evaluated by Surgery and IR, abscess not drainable at this time - patient to follow up with colonoscopy in 3-6 weeks, can f/u with surgery clinic - CRP: 1.3 - afebrile, tylenol 650 mg q6h prn pain or fever - spoke with Dr. Newman, patient pain free and hungry; patient tolerated clear liquid, advance to full for dinner and advance as tolerated #hypokalemia - resolved #DVT ppx - Lovenox 40 mg Dispo: continue to monitor clinically Visit type - Emergency Visit Emergency Visit: No - New Patient This patient is new to me today: No - Critical Care Critical Care patient: No
[2018-09-30] MEDS: ENOXAPARIN NA (PORCINE) 40 MG/0.4 ML DISP.SYRIN SQ SCH (09:53)
--- NOTE | 2018-09-30 10:14 | PN ---
Progress Note, Physician History of Present Illness: 63yo female with PMH constipation, diverticulitis admitted following 2 weeks of LLQ abdominal pain, fevers (Tmax 102 at home, now resolved), nausea, vomiting, diarrhea. She states that last saturday 09/22 she saw her PCP who diagnosed her with Diverticulitis and started her on PO Cipro/Flagyl. complains of being hungry but abdominal pain persists. low grade temp - Current Medication List Current Medications: Active Medications Acetaminophen (Tylenol -) 650 mg PO Q6H PRN PRN Reason: PAIN OR FEVER Enoxaparin Sodium (Lovenox -) 40 mg SQ DAILY IDA Last Admin: 09/30/18 09:53 Dose: 40 mg Piperacillin Sod/Tazobactam (Sod 3.375 gm/ Dextrose) 50 mls @ 100 mls/hr IVPB Q8H-IV IDA; Protocol Last Admin: 09/30/18 09:53 Dose: 100 mls/hr Ondansetron HCl (Zofran Injection) 4 mg IVPUSH Q6H PRN PRN Reason: NAUSEA - Objective Vital Signs: Vital Signs Temperature 99.2 F 09/30/18 06:00 Pulse Rate 78 09/30/18 06:00 Respiratory Rate 18 09/30/18 06:00 Blood Pressure 110/61 09/30/18 06:00 O2 Sat by Pulse Oximetry (%) 98 09/29/18 21:00 Vital Signs Period Temp Pulse Resp BP Sys/[place] Pulse Ox Last 24 Hr 98.4 F-99.2 F 76-88 18-20 110-143/61-84 98 Constitutional: Yes: Well Nourished, No Distress, Calm Eyes: Yes: Conjunctiva Clear, EOM Intact HENT: Yes: Atraumatic, Normocephalic Neck: Yes: Supple, Trachea Midline Cardiovascular: Yes: Regular Rate and Rhythm, S1, S2 Respiratory: Yes: Regular, CTA Bilaterally Gastrointestinal: Yes: Normal Bowel Sounds, Soft, Abdomen, Obese, Tenderness ( LLQ improver compared to previous) ...Rectal Exam: Yes: Deferred Genitourinary: No: CVA Tenderness - Left, CVA Tenderness - Right Breast(s): No: Discharge from Nipple, Mass Musculoskeletal: No: Muscle Pain, Muscle Weakness Extremities: No: Cool, Cyanosis Edema: No Peripheral Pulses WNL: Yes Peripheral Pulses: Left Radial: 2+, Right Radial: 2+, Left Doralis Pedis: 2+, Right Dorsalis Pedis: 2+ Integumentary: No: Laceration, Rash, Tattoos Neurological: Yes: Alert, Oriented Psychiatric: Yes: Alert, Oriented Labs: CBC, BMP 09/30/18 06:15 09/30/18 06:15 INR, PTT INR 1.34 (0.83-1.09) H 09/29/18 06:30 Problem List - Problems (1) Diverticulitis of large intestine with abscess Assessment/Plan: 63yo female with constipation and an acute diverticulitis (hinchey class 1) NPO and IVF hydration until pain free IV antibiotics will need PO antibiotic regimen GI for f/u colonioscopy in 6-8weeks f/u in surgery clinic in 3 months for elective sigmoid colectomy if desired. will follow periperally for serial exams Code(s): K57.20 - DVTRCLI OF LG INT W PERFORATION AND ABSCESS W/O BLEEDING Qualifiers: Diverticulitis bleeding: without bleeding Qualified Code(s): K57.20 - Diverticulitis of large intestine with perforation and abscess without bleeding (2) Abdominal pain Code(s): R10.9 - UNSPECIFIED ABDOMINAL PAIN Qualifiers: Abdominal location: lower abdomen, unspecified Qualified Code(s): R10.30 - Lower abdominal pain, unspecified (3) Fever Code(s): R50.9 - FEVER, UNSPECIFIED Qualifiers: Fever type: due to other condition Qualified Code(s): R50.81 - Fever presenting with conditions classified elsewhere
[2018-10-01] MEDS ORDERED: PIPERACILLIN/TAZOBACTAM 3.375 GM VIAL IVPB ONE ×3 (01:30→17:53)
[2018-10-01] MEDS ORDERED: DEXTROSE 5%-WATER - 50 ML IVPB ONE ×3 (01:31→17:54)
[2018-10-01] MEDS: PIPERACILLIN/TAZOB 3.375 GM 3.375 GM in DEXTROSE 5%-WATER - 50 ML IVPB SCH ×3 (01:59→18:06)
[2018-10-01 06:42] LABS: HEMATOCRIT 38.7 % (32.4-45.2); HEMOGLOBIN 12.7 GM/dL (10.7-15.3); MCH 27.4 pg (25.7-33.7); MCHC 32.9 g/dl (32.0-36.0); MEAN CELL VOLUME 83.3 fl (80-96); MEAN PLT VOLUME 9.9 fl (7.5-11.1); PLATELET COUNT 258 K/MM3 (134-434); RBC 4.64 M/mm3 (3.60-5.2); RDW 13.5 % (11.6-15.6); WHITE BLOOD COUNT 4.8 K/mm3 (4.0-10.0)
[2018-10-01 07:14] LABS: ALBUMIN 3.2 g/dl (3.4-5.0); ALK PHOS 93 U/L (45-117); ANION GAP 7 MMOL/L (8-16); BILIRUBIN,TOTAL 0.5 mg/dL (0.2-1); BLOOD UREA NITROGEN 6 mg/dL (7-18); CALCIUM 8.3 mg/dL (8.5-10.1); CHLORIDE 104 mmol/L (98-107); CO2 28 mmol/L (21-32); CREATININE 0.6 mg/dL (0.55-1.3); GLUCOSE,RANDOM 81 mg/dL (74-106); POTASSIUM 4.3 mmol/L (3.5-5.1); SGOT/AST 23 U/L (15-37); SGPT/ALT 36 U/L (13-61); SODIUM 139 mmol/L (136-145); TOT PROT 6.3 g/dl (6.4-8.2)
[2018-10-01] MEDS: ENOXAPARIN NA (PORCINE) 40 MG/0.4 ML DISP.SYRIN SQ SCH (09:55)
--- NOTE | 2018-10-01 10:50 | PN ---
Progress Note (short form) - Note Progress Note: Subjective: no fever or chills. No abd pain, had one BM this am , no blood . Objective: Vital Signs: Last Vital Signs Temp Pulse Resp BP Pulse Ox 98.6 F 72 18 110/70 98 10/01/18 05:00 10/01/18 05:00 10/01/18 05:00 10/01/18 05:00 09/30/18 21:00 Laboratory Results - last 24 hr 10/01/18 10/01/18 05:20 05:20 WBC 4.8 RBC 4.64 Hgb 12.7 Hct 38.7 MCV 83.3 MCH 27.4 MCHC 32.9 RDW 13.5 Plt Count 258 MPV 9.9 Sodium 139 Potassium 4.3 Chloride 104 Carbon Dioxide 28 Anion Gap 7 L BUN 6 L Creatinine 0.6 Creat Clearance w eGFR > 60 Random Glucose 81 Calcium 8.3 L Total Bilirubin 0.5 AST 23 ALT 36 Alkaline Phosphatase 93 Total Protein 6.3 L Albumin 3.2 L Physical Exam: NAD, Cv; RRR Lungs: CTAB Abd: soft, TTP suprapubic area. Ext: no edema or erythema ASSESSMENT AND PLAN: 63 y/o previously healthy lady who presented with abd pain and N/V after being treated for acute diverticulitis x 8 days with cipro/flagyl 1- Acute sigmoid diverticulitis with abscess formation:still with mild tenderness - cont Zosyn - liquid diet - No labs for tomorrow DVT Px : DVT px Visit type - Emergency Visit Emergency Visit: Yes ED Registration Date: 09/28/18 Care time: The patient presented to the Emergency Department on the above date and was hospitalized for further evaluation of their emergent condition. - New Patient This patient is new to me today: No - Critical Care Critical Care patient: No
[2018-10-02] MEDS ORDERED: PIPERACILLIN/TAZOBACTAM 3.375 GM VIAL IVPB ONE ×2 (01:39→08:40)
[2018-10-02] MEDS ORDERED: DEXTROSE 5%-WATER - 50 ML IVPB ONE ×2 (01:39→08:41)
[2018-10-02] MEDS: PIPERACILLIN/TAZOB 3.375 GM 3.375 GM in DEXTROSE 5%-WATER - 50 ML IVPB SCH ×2 (02:11→09:01)
--- NOTE | 2018-10-02 07:34 | PN ---
Teaching Attending Note Name of Resident: Olga Pantoja ATTENDING PHYSICIAN STATEMENT I saw and evaluated the patient. I reviewed the resident's note and discussed the case with the resident. I agree with the resident's findings and plan as documented. SUBJECTIVE: Patient is comfortable with no acute distress, no fever or chills. no shortness of breath. OBJECTIVE: Vital Signs Temperature 99.2 F 10/02/18 05:00 Pulse Rate 74 10/02/18 05:00 Respiratory Rate 18 10/02/18 05:00 Blood Pressure 108/69 10/02/18 05:00 O2 Sat by Pulse Oximetry (%) 99 10/01/18 21:00 GENERAL: The patient is awake, alert, and fully oriented, in no acute distress. HEAD: Normal with no signs of trauma. EYES: PERRL, extraocular movements intact, ENT: moist mucous membranes. LUNGS: Breath sounds equal, clear to auscultation bilaterally, no wheezes, no crackles HEART: Regular rate and rhythm, S1, S2 without murmur, rub or gallop. ABDOMEN: Soft, NT,ND, normoactive bowel sounds, no guarding, no rebound EXTREMITIES: 2+ pulses, warm, well-perfused, no edema. PSYCH: Normal mood, normal affect. SKIN: Warm, dry, normal turgor, no rashes or lesions noted CBCD WBC 4.8 K/mm3 (4.0-10.0) 10/01/18 05:20 RBC 4.64 M/mm3 (3.60-5.2) 10/01/18 05:20 Hgb 12.7 GM/dL (10.7-15.3) 10/01/18 05:20 Hct 38.7 % (32.4-45.2) 10/01/18 05:20 MCV 83.3 fl (80-96) 10/01/18 05:20 MCHC 32.9 g/dl (32.0-36.0) 10/01/18 05:20 RDW 13.5 % (11.6-15.6) 10/01/18 05:20 Plt Count 258 K/MM3 (134-434) 10/01/18 05:20 MPV 9.9 fl (7.5-11.1) 10/01/18 05:20 CMP Sodium 139 mmol/L (136-145) 10/01/18 05:20 Potassium 4.3 mmol/L (3.5-5.1) 10/01/18 05:20 Chloride 104 mmol/L (98-107) 10/01/18 05:20 Carbon Dioxide 28 mmol/L (21-32) 10/01/18 05:20 Anion Gap 7 MMOL/L (8-16) L 10/01/18 05:20 BUN 6 mg/dL (7-18) L 10/01/18 05:20 Creatinine 0.6 mg/dL (0.55-1.3) 10/01/18 05:20 Creat Clearance w eGFR > 60 (>60) 10/01/18 05:20 Random Glucose 81 mg/dL (74-106) 10/01/18 05:20 Calcium 8.3 mg/dL (8.5-10.1) L 10/01/18 05:20 Total Bilirubin 0.5 mg/dL (0.2-1) 10/01/18 05:20 AST 23 U/L (15-37) 10/01/18 05:20 ALT 36 U/L (13-61) 10/01/18 05:20 Alkaline Phosphatase 93 U/L (45-117) 10/01/18 05:20 Total Protein 6.3 g/dl (6.4-8.2) L 10/01/18 05:20 Albumin 3.2 g/dl (3.4-5.0) L 10/01/18 05:20 Current Medications Generic Name Dose Route Start Last Admin Trade Name Freq PRN Reason Stop Dose Admin Acetaminophen 650 mg 09/29/18 14:34 Tylenol - PO Q6H PRN PAIN OR FEVER Enoxaparin Sodium 40 mg 09/30/18 10:00 10/01/18 09:55 Lovenox - SQ 40 mg DAILY IDA Administration Piperacillin Sod/Tazobactam 50 mls @ 100 mls/hr 09/29/18 11:30 10/02/18 02:11 Sod 3.375 gm/ Dextrose IVPB 100 mls/hr Q8H-IV IDA Administration Protocol Ondansetron HCl 4 mg 09/29/18 02:10 Zofran Injection IVPUSH Q6H PRN NAUSEA Home Medications Medication Instructions Recorded Amoxicillin/Potassium Clav 1 each PO BID 10 Days tablet 10/02/18 [Augmentin 875-125 Tablet] Miscellaneous Medical Supply 1 each ASDIR #1 misc 10/02/18 [Outpatient Order] metroNIDAZOLE [Flagyl -] 500 mg PO TID 10 Days tablet 10/02/18 ASSESSMENT AND PLAN: Patient is a 63 y/o female presented with abdominal pain and N/V after being treated with acute diverticulitis x 8 days with cipro/flagyl # Acute sigmoid diverticulitis with abscess formation: on IV Zosyn per ID. Failed fluoroquinolones as an outpatient on Clear liquid diet now, Advised to continue with low residue diet, low fat and low carbohydrate diet. repeat ct in 10 days post completion of antibiotics. Follow with the ID/Surgery for further care and evaluation. Patient was not a candidate for IR procedure since the location of an abscess location could not be reached. repeat CT as an out pt to assess resolution . As out pt will need colonoscopy and surgical f/u once stable. will discharge the patient on 875mg po bid Augmentin and Flagyl po 500mg tid x10 days. DVT Px : add Lovenox
--- NOTE | 2018-10-02 07:53 | PN ---
Physical Exam: SUBJECTIVE: Patient is a 63 y/o female with no past medical history who is here for diverticulitis with colonic wall abscess. Patient denies fever, pain, diarrhea, or nause. Patient has been tolerating full liquid diet. OBJECTIVE: Vital Signs Temperature 99.2 F 10/02/18 05:00 Pulse Rate 74 10/02/18 05:00 Respiratory Rate 18 10/02/18 05:00 Blood Pressure 108/69 10/02/18 05:00 O2 Sat by Pulse Oximetry (%) 99 10/01/18 21:00 GENERAL: The patient is awake, alert, and fully oriented, in no acute distress. HEAD: Normal with no signs of trauma. EYES: PERRL, extraocular movements intact, ENT: moist mucous membranes. LUNGS: Breath sounds equal, clear to auscultation bilaterally, no wheezes, no crackles HEART: Regular rate and rhythm, S1, S2 without murmur, rub or gallop. ABDOMEN: tender in the LLQ to deep palpation, no distension, normal bowel sounds EXTREMITIES: 2+ pulses, warm, well-perfused, no edema. PSYCH: Normal mood, normal affect. SKIN: Warm, dry, normal turgor, no rashes or lesions noted Active Medications Acetaminophen (Tylenol -) 650 mg PO Q6H PRN PRN Reason: PAIN OR FEVER Enoxaparin Sodium (Lovenox -) 40 mg SQ DAILY IDA Last Admin: 10/01/18 09:55 Dose: 40 mg Piperacillin Sod/Tazobactam (Sod 3.375 gm/ Dextrose) 50 mls @ 100 mls/hr IVPB Q8H-IV IDA; Protocol Last Admin: 10/02/18 02:11 Dose: 100 mls/hr Ondansetron HCl (Zofran Injection) 4 mg IVPUSH Q6H PRN PRN Reason: NAUSEA ASSESSMENT/PLAN: Patient is a 63 y/o female with no past medical history who is here for diverticulitis with colonic wall abscess. #diverticulitis with colonic wall abscess - CT abd pelvis: acute sigmoid diverticulitis with intramural abscess in colonic wall - continue patient on Zosyn 3.3.75 gm IV q8h, day 4 - continue IV abx per Bharath, monitor clinically to determine when change to po abx - evaluated by Surgery and IR, abscess not drainable at this time - patient to follow up with colonoscopy in 3-6 weeks, can f/u with surgery clinic - afebrile, tylenol 650 mg q6h prn pain or fever - spoke with Dr. Newman, patient pain free and hungry; patient tolerated clear liquid, advance to full for dinner and advance as tolerated #hypokalemia - resolved #DVT ppx - Lovenox 40 mg Dispo: DC today Visit type - Emergency Visit Emergency Visit: No - New Patient This patient is new to me today: No - Critical Care Critical Care patient: No - Discharge Referral Referred to [facility] No
[2018-10-02] MEDS ORDERED: PT OWN MED DRAWER 7, Y5N ONE (08:40)
[2018-10-02] MEDS: ENOXAPARIN NA (PORCINE) 40 MG/0.4 ML DISP.SYRIN SQ SCH (09:01)
--- NOTE | 2018-10-02 12:57 | DS ---
Physical Exam: SUBJECTIVE: Patient is a 63 y/o female with no past medical history who is here for diverticulitis with colonic wall abscess. Patient denies fever, pain, diarrhea, or nause. Patient has been tolerating full liquid diet. OBJECTIVE: Vital Signs Temperature 98.9 F 10/02/18 08:53 Pulse Rate 74 10/02/18 08:53 Respiratory Rate 18 10/02/18 08:53 Blood Pressure 106/66 10/02/18 08:53 O2 Sat by Pulse Oximetry (%) 99 10/02/18 09:00 PHYSICAL EXAM GENERAL: The patient is awake, alert, and fully oriented, in no acute distress. HEAD: Normal with no signs of trauma. EYES: PERRL, extraocular movements intact, ENT: moist mucous membranes. LUNGS: Breath sounds equal, clear to auscultation bilaterally, no wheezes, no crackles HEART: Regular rate and rhythm, S1, S2 without murmur, rub or gallop. ABDOMEN: tender in the LLQ to deep palpation, no distension, normal bowel sounds EXTREMITIES: 2+ pulses, warm, well-perfused, no edema. PSYCH: Normal mood, normal affect. SKIN: Warm, dry, normal turgor, no rashes or lesions noted HOSPITAL COURSE: Date of Admission:09/28/18 Patient presented for nausea, vomiting, and abdominal pain. CT scan showed acute sigmoid diverticulitis with intramural abscess. Patient had been taking Cipro and Flagyl as an outpatient and was placed on Zosyn 3.375 mg IV q8h for coverage. Patient was evaluated by surgery who found surgery was not indicated at this time. Interventional Radiology reviewed the imaging and also did not feel like the abscess was accessible for drainage. Patient to be managed conservatively. Patient was able to tolerate full liquid diet and pain resolved. Patient will continue abx treatment with Augmentin and Flagyl for ten day treatment. Patient instructed to eat low fat, low fiber diet. Patient instructed to get a CT scan after finishing antibiotic course. Discussed with patient importance of getting a colonoscopy in 6-8 weeks. Patient had one episode of hypokalemia. Resolved with repletion of potassium. Patients blood cultures negative. Date of Discharge: 10/02/18 Minutes to complete discharge: 40 Discharge Summary Reason For Visit: DIVERTICULITIS,ABD PAIN Condition: Good - Instructions Diet, Activity, Other Instructions: You came to the hospital because of pain in your abdomen, nausea and vomiting. We did imaging and it showed that you have an abscess (collection of an infection) in your colon wall. This infection is what was causing the pain, nausea and vomiting. We treated you with antibiotics for this infection. For the infection you will continue to take: Augmentin 875 by mouth twice a day Flagyl 500 mg by mouth three times a day You should continue to eat soft food while this infection is getting better. Avoid food high in carbs, fiber, or fat. It is very important that after you finish the antibiotics you have another CT scan of your abdomen to see if the infection has resolved. You should also follow up with a [facility] to have a colonoscopy done in the next 6-8 weeks. please follow up with surgeon, Dr. Newman, for further care and follow up. You can follow up with our clinic in a week to monitor you, the information is provided. Please return to the ED if you have fevers, nausea, vomiting, diarrhea, constipation, chest pain, shortness of breath, or headache. En Espanol: Lleg al hospital por dolor en el abdomen, nuseas y vmitos. Hicimos imgenes y demostramos que tiene un absceso en la pared del colon. Esta infeccin es lo que estaba causando el dolor, las nuseas y los vmitos. Te tratamos con antibiticos para esta infeccin. Para la infeccin seguirs tomando: Augmentin 875 por va oral dos veces al da. Flagyl 500 mg por va oral tyrone veces al da, please do not take alcohol with this medication. Debe continuar comiendo alimentos blandos mientras la infeccin est mejorando. Evite los alimentos ricos en carbohidratos, fibra o grasa. Es muy importante que, despus de terminar los antibiticos, se realice otra tomografa computarizada de noel abdomen para justin si la infeccin se napoles resuelto. Tambin debe hacer un seguimiento con un gastroenterlogo para realizarse anne marie colonoscopia en las prximas 6 a 8 semanas. Si lo desea, puede hacer un seguimiento con el cirujano, el Dr. Newman, para anne marie ciruga electiva de noel colon. Puede hacer un seguimiento con nuestra clnica en anne marie semana para controlarlo, se proporciona la informacin. Regrese a la mao de emergencias si tiene fiebre, nuseas, vmitos, diarrea, estreimiento, dolor en el pecho, dificultad para respirar o dolor de mj. Referrals: Escobar Gomez MD [Staff Physician] - 1 Week Jaquan Aguilar MD [Staff Physician] - 1 Week Gilberto Newman MD [Staff Physician] - 1 Week Disposition: HOME - Home Medications Comprehensive Discharge Medication List: Ambulatory Orders Amoxicillin/Potassium Clav [Augmentin 875-125 Tablet] 1 each PO BID 10 Days tablet 10/02/18 Miscellaneous Medical Supply [Outpatient Order] 1 each ASDIR #1 misc metroNIDAZOLE [Flagyl -] 500 mg PO TID 10 Days tablet 10/02/18 This patient is new to me today: No Emergency Visit: No Critical Care patient: No - Discharge Referral Referred to [facility] No
[2018-10-02 14:04] VITALS: BP 128/72; PULSE 76; TEMP 98.8
== END 2018-10-02 14:35 | disposition home or self-care (01) | DRG 244 ==
LOC: JER 19:47 → JERBED 23:39 → J7W 09-29 03:50
PROVIDERS: ADMIT Internal Medicine; ATTEND Internal Medicine
DX: K57.20 Diverticulitis of large intestine with perforation and abscess without bleeding (principal); E87.6 Hypokalemia; M19.90 Unspecified osteoarthritis, unspecified site
CPT/HCPCS: 36415; 74177-TC; 80053; 81003; 81015; 83605; 83690; 83735; 84100; 85025; 85027; 85610; 86140; 87040; 93005; 93010; 94010; 99285-25; J7030

== ENCOUNTER 2019-02-11 10:44 | Day surgery (SDC) | payer OTHER ==
[2019-02-10 11:48] VITALS: BMI 30.1
[2019-02-11 13:10] VITALS: TEMP 97.9
[2019-02-11 14:14] VITALS: BP 123/68; PULSE 68
--- NOTE | 2019-02-15 16:07 | PATH ---
Surgical Pathology Report Patient Name: DMITRY HUDSON [facility]. Rec. #: [id number] /Age/Gender: 1955 (Age: 63) / F Account: [id number] Location: [facility]-ENDOSCOPY Taken: 02/11/2019 Received: 02/12/2019 Reported: 02/15/2019 Physicians: Surjit Aguilar D.O. Specimen(s) Received DESCENDING COLON POLYP Clinical History Diverticulitis Postoperative diagnosis: Colon polyp, diverticulosis, hemorrhoids Final Diagnosis DESCENDING COLON POLYP, BIOPSY: COLONIC MUCOSA WITH FOCAL SURFACE HYPERPLASTIC CHANGE. Electronically Signed Neal Mckinley M.D. Gross Description Received in formalin, labeled "polyp descending colon" are 2 urena, irregular portions of soft tissue averaging 0.3 cm. in greatest dimension. The specimens are submitted in toto in one cassette. /02/12/201902/12/2019
== END 2019-02-11 14:14 | disposition home or self-care (01) ==
LOC: JASU-ENDO 10:44
PROVIDERS: ATTEND Internal Medicine Gastroenterology
PROC: 0DBM8ZX Excision of Descending Colon, Via Natural or Artificial Opening Endoscopic, Diagnostic (ICD-10-PCS; principal; 2019-02-11 11:45)
DX: Z12.11 Encounter for screening for malignant neoplasm of colon (principal); Z86.010 Personal history of colon polyps; K57.30 Diverticulosis of large intestine without perforation or abscess without bleeding; K64.8 Other hemorrhoids; D12.4 Benign neoplasm of descending colon
CPT/HCPCS: 88305-TC